=== PATIENT | female | born 1960 | race Caucasian/White ===

== ENCOUNTER 2016-11-17 14:25 | Emergency (ER) | payer SELFPAY ==
[~2016-11-17] VITALS: Ht 157.5 cm; Wt 96.3 kg
[2016-11-17 14:40] VITALS: BP 140/89
--- NOTE | 2016-11-17 15:21 | NUR ---
PT TO BED 6
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
--- NOTE | 2016-11-17 15:29 | NUR ---
DR. MENA PRESENT AT BEDSIDE
[2016-11-17] MEDS ORDERED: TOPROL XL25 MG PO (15:31)
[2016-11-17] MEDS ORDERED: HUMALOG100 UNITS/ SUBQ (15:31)
--- NOTE | 2016-11-17 15:56 | NUR ---
PT TO CT VIA WHEELCHAIR.
--- NOTE | 2016-11-17 16:18 | NUR ---
PT BACK FROM CT
--- NOTE | 2016-11-17 17:38 | NUR ---
CHECKED BP: 195/97. DR. MENA AWARE.
--- NOTE | 2016-11-17 17:38 | NUR ---
DR. MENA PRESENT AT BEDSIDE TO DISCUSS PLAN OF CARE.
[2016-11-17] MEDS ORDERED: cloNIDine 0.1 MG TAB PO ONE (17:45)
--- NOTE | 2016-11-17 18:05 | NUR ---
Patient discharged with v/s stable. Written and verbal after care instructions given and explained. Patient alert, oriented and verbalized understanding of instructions. Ambulatory with steady gait. All questions addressed prior to discharge. ID band removed. IV DC'ED WITH CANNULA INTACT. Patient advised to follow up with PMD. Rx of TYLENOL AND LASIX given. Patient educated on indication of medication including possible reaction and side effects. Opportunity to ask questions provided and answered.
[2016-11-17 18:18] VITALS: BP 159/90
== END 2016-11-17 18:05 | disposition home or self-care (01) ==
LOC: MED 14:25
DX: N28.9 Disorder of kidney and ureter, unspecified (principal); R10.2 Pelvic and perineal pain; R07.89 Other chest pain; E11.9 Type 2 diabetes mellitus without complications; I10 Essential (primary) hypertension
CPT/HCPCS: 36415; 71010; 74176; 80053; 81001; 81025; 82553; 82948; 83690; 83880; 84484; 85025; 85610; 85730; 87086; 93005; 99285; Q0092

== ENCOUNTER 2019-03-11 19:43 | Inpatient (IN) | payer MEDICAID ==
[~2019-03-11] VITALS: Ht 157.5 cm; Wt 74.8 kg
[~2019-03-11 19:43] MED LIST: HUM SUBQ; METO25TE2 PO
[2019-03-11 19:49] VITALS: BP 143/76
--- NOTE | 2019-03-11 19:50 | NUR ---
TO BED # 03 AMBULATORY
--- NOTE | 2019-03-11 20:00 | NUR ---
PT BIB SELF WITH C/O SHAKINESS, N/V, H/A 4 HOURS AGO. STATES TO HAVE PAIN AT LFT LOWER QUADRANT, 7/10 AT THIS TIME. STATES TO HAVE CHILLS. ER TO SEE THE PT. PT HAS HX OF RENAL DISEASE. WILL CONTINUE TO MONITOR PT.
[2019-03-11] MEDS ORDERED: ONDANSETRON 4 MG/2 ML VIAL IVP ONE (20:10)
[2019-03-11 20:28] LABS: HEMOGLOBIN 8.1 g/dL (12.0-16.0)
[2019-03-11 20:34] LABS: HEMATOCRIT 24.6 % (36-48); MEAN CORPUSCULAR HEMOGLOBIN 30 pg (27-31); MEAN CORPUSCULAR HGB CONC 33 g/dL (33-37); MEAN CORPUSCULAR VOLUME 90.8 fL (80-94); PLATELET COUNT (AUTO) 310 K/uL (140-450); RED BLOOD CELL COUNT(AUTO) 2.71 MIL/uL (4.20-5.40); RED CELL DISTRIBUTION WIDTH 14.6 % (11.6-13.7); WHITE BLOOD COUNT (AUTO) 19.6 K/uL (4.8-10.8)
[2019-03-11 20:44] LABS: CHOL/HDL RATIO 2.3 (1-4.5)
[2019-03-11 20:46] LABS: ALBUMIN 3.4 g/dL (3.4-5.0); CARBON DIOXIDE 21.9 mmol/L (21-32); CREATININE 3.7 mg/dL (0.6-1.3); POTASSIUM 4.9 mmol/L (3.5-5.1); TOTAL BILIRUBIN 0.6 mg/dL (0.0-1.0)
[2019-03-11] MEDS ORDERED: FAMOTIDINE 20 MG/2 ML VIAL IVP ONE (20:50)
[2019-03-11] MEDS ORDERED: MORPHINE SULFATE 4 MG/ML SYR IVP ONE (20:50)
[2019-03-11 20:53] LABS: LYMPHOCYTES % (MANUAL) 2 % (20-46); MONOCYTES % (MANUAL) 6 % (5-12)
--- NOTE | 2019-03-11 21:11 | NUR ---
ASSUMED CARE OF PT AT THIS TIME
[2019-03-11] MEDS ORDERED: ACETAMINOPHEN 325 MG TAB PO PRN (21:20)
[2019-03-11] MEDS ORDERED: HYDROcodone/APAP 7.5/325 MG 1 TAB PO PRN (21:20)
--- NOTE | 2019-03-11 21:24 | NUR ---
ENDORSDED PT TO PM NURSE, PT STABLE AT THIS TIME.
[2019-03-11 21:44] LABS: APPEARANCE,URINE HAZY (CLEAR); BILIRUBIN,URINE NEGATIVE (NEGATIVE); BLOOD, URINE NEGATIVE (NEGATIVE); COLOR,URINE YELLOW (YELLOW); LEUKOCYTE ESTERASE ,URINE NEGATIVE (NEGATIVE); NITRITE, URINE NEGATIVE (NEGATIVE); UGLUCOSE TRACE (NEGATIVE)
[2019-03-11 21:49] LABS: PROTHROMBIN TIME 10.9 secs (10.8-13.4)
[2019-03-11 21:55] LABS: RBC,URINE 0-5 /HPF (0-5)
[2019-03-11 21:56] LABS: FINE GRANULAR CASTS,URINE 0-10 /LPF (None Seen); HYALINE CASTS, URINE 0-10 /LPF (None Seen); WBC,URINE 0-5 /HPF (0-5)
--- NOTE | 2019-03-11 21:56 | NUR ---
Patient will be admitted to care of DR. ACHARYA. Admited to TELE Will go to room 119A. Belongings list completed. Report to ANITA KIRBY.
[2019-03-11 21:58] LABS: PHOSPHORUS 5.2 mg/dL (2.5-4.9); THYROID STIMULATING HORMONE 3.94 uIU/mL (0.34-3.74)
[2019-03-11 22:00] VITALS: BP 117/75
--- NOTE | 2019-03-11 22:00 | NUR ---
ADMITTED THIS 59 YEAR OLD FEMALE FROM ER PER MARIA VICTORIA WITH CC OF N/V, ABDOMINAL PAIN AND SHAKINESS FOR 4 HOURS, AMBULATED TO BED WITH ASSIST, ASSESSMENT DONE, VITAL SIGNS STABLE, COMPLAINING OF ABDOMINAL PAIN, NO N/V NOTED AT THIS TIME, WILL MEDICATE PRN, ORIENTED TO ROOM AND CALL LIGHT, PLAN OF CARE DISCUSSED WITH PT AND DAUGHTER ODELL AT BEDSIDE, SAFETY MEASURES IN PLACE, CALL LIGHT WITHIN REACH.
[2019-03-11 22:13] LABS: BARBITURATE, URINE NEG. ng/ml (NEG <=200); BENZODIAZEPINE, URINE NEG. ng/mL (NEG <=200); CANNABINOID, URINE NEG. ng/mL (NEG <=50); COCAINE, URINE NEG. ng/mL (NEG <=300); OPIATE, URINE NEG. ng/mL (NEG <=2000); PHENCYCLIDINE SCREEN,URINE NEG. ng/mL (NEG <=25)
[2019-03-11] MEDS ORDERED: DEXT 5% / NACL 0.9% 500 ML IV SCH (22:15)
[2019-03-11] MEDS ORDERED: FURO-570 PO (22:29)
[2019-03-11] MEDS ORDERED: HYDR100T49 PO (22:29)
[2019-03-11] MEDS ORDERED: ADA90 PO (22:29)
[2019-03-11] MEDS ORDERED: METO5TAB9 PO (22:30)
--- NOTE | 2019-03-11 22:30 | NUR ---
PT AMBULATED TO BR WITH ASSIST, VOIDED FREELY, URINE SENT TO LAB FOR TEST, ASSISTED BACK TO BED, STARTED ON IVF OF D5NS AT 20ML ORDERED, ALL NEEDS ATTENDED.
[2019-03-11] MEDS ORDERED: PROC5TAB PO (22:32)
[2019-03-11] MEDS ORDERED: HYDROmorphone 1 MG/ML AMP IVP PRN (23:05)
[2019-03-12] VITALS: BP 150/69
[2019-03-12] MEDS: hydrALAZINE 25 MG TAB PO SCH ×3 (00:04→20:02)
[2019-03-12] MEDS: PIPER/TAZO 2.25GM/D5W PREMIX 50 ML IV SCH ×4 (00:04→17:59)
[2019-03-12] MEDS: FUROSEMIDE 40 MG/4 ML VIAL IVP SCH ×2 (00:05→09:02)
--- NOTE | 2019-03-12 00:05 | NUR ---
PT BACK FROM CT DEPT, VITAL SIGNS TAKEN, BP SLIGHTLY ELEVATED, DENIES CHEST PAIN, HYDRALAZINE AND LASIX GIVEN ORDERED, FIRST DOSE OF ZOSYN ADMINISTERED, WILL MONITOR FOR REACTION, CONTINUE TO MONITOR CLOSELY.
[2019-03-12] MEDS ORDERED: PIPERACILLIN/TAZOBACTAM 2.25 GM VIAL IV ONE ×2 (00:08→05:28)
--- NOTE | 2019-03-12 01:48 | NUR ---
PT VOIDED FREELY PER BEDPAN WITH 250ML CLEAR YELLOW URINE, PT IN NO DISTRESS AT THIS TIME, MONITORED CLOSELY.
[2019-03-12] MEDS ORDERED: INSULIN LISPRO SLIDING SCALE 100 UNITS/ML VIAL SUBQ PRN (03:10)
[2019-03-12] MEDS ORDERED: DEXTROSE 50% 50 ML SYR IVP PRN (03:10)
--- NOTE | 2019-03-12 03:25 | NUR ---
PT REQUESTING FOR SOMETHING TO EAT, DR BLUNT ORDERED [facility] DIET, MILK PROVIDED, TOLERATED WELL, NO N/V, COMPLAINING OF ABDOMINAL PAIN, VITAL SIGNS TAKEN, BP SLIGHTLY ELEVATED, NO SOB NOTED, MEDICATED PRN FOR PAIN WITH DILAUDID IVP, MONITORED CLOSELY.
[2019-03-12 04:00] VITALS: BP 157/84
--- NOTE | 2019-03-12 06:05 | NUR ---
PT SLEEPING, EASILY AROUSABLE, BLOOD SUGAR CHECKED WITH 128 RESULT, NO COVERAGE NEEDED, ZOSYN IVPB INFUSING WELL, ABLE TO EXPECTORATE YELLOW PHLEGM, SPUTUM SENT TO LAB FOR TEST, DAUGHTER ODELL AT BEDSIDE, MONITORED CLOSELY.
[2019-03-12] MEDS ORDERED: MORPHINE SULFATE 2 MG/ML SYR IVP PRN (06:15)
[2019-03-12] MEDS: BLOOD GLUCOSE MONITORING 1 DEV DEV FS SCH ×4 (06:38→21:00)
[2019-03-12 06:48] LABS: ANION GAP 16.5 (8-16); CARBON DIOXIDE 22.6 mmol/L (21-32); CREATININE 3.5 mg/dL (0.6-1.3); POTASSIUM 5.1 mmol/L (3.5-5.1)
[2019-03-12 06:49] LABS: HEMATOCRIT 22.7 % (36-48); HEMOGLOBIN 7.2 g/dL (12.0-16.0); MEAN CORPUSCULAR HEMOGLOBIN 30 pg (27-31); MEAN CORPUSCULAR HGB CONC 32 g/dL (33-37); MEAN CORPUSCULAR VOLUME 93.3 fL (80-94); PLATELET COUNT (AUTO) 262 K/uL (140-450); RED BLOOD CELL COUNT(AUTO) 2.43 MIL/uL (4.20-5.40); WHITE BLOOD COUNT (AUTO) 23.5 K/uL (4.8-10.8)
--- NOTE | 2019-03-12 07:15 | NUR ---
PT SLEEPING, EASILY AROUSABLE, NO SIGNS OF DISTRESS, REPORT GIVEN TO MIRTA HEARD FOR CONTINUITY OF CARE.
--- NOTE | 2019-03-12 07:16 | NUR ---
RECEIVED REPORT FROM PAUNCH TRIMMER NURSE ANITA FOR CONTINUITY OF CARE. PT IN STABLE CONDITION. RESPIRATIONS EVEN AND UNLABORED. IV INTACT AND PATENT. BED IN LOW POSITION. BED ALARM ON. CALL LIGHT AT BEDSIDE. WILL CONTINUE TO MONITOR.
[2019-03-12 07:18] LABS: LYMPHOCYTES % (MANUAL) 2 % (20-46); MONOCYTES % (MANUAL) 2 % (5-12)
[2019-03-12] MEDS ORDERED: VANCOMYCIN PER PHARMACY MC PRN (07:30)
[2019-03-12] MEDS: ONDANSETRON 4 MG/2 ML VIAL IM/IVP PRN ×3 (07:35→22:06)
[2019-03-12 08:00] VITALS: BP 169/83
[2019-03-12] MEDS ORDERED: VANCOMYCIN 1,000 MG in NACL 0.9% 250 ML IV SCH (09:00)
[2019-03-12] MEDS ORDERED: VANCOMYCIN 1GM/DEXT 5% PREMIX 200 ML IV SCH (09:00)
[2019-03-12] MEDS: HYDROcodone/APAP 7.5/325 MG 1 TAB PO PRN ×2 (09:03→18:35)
[2019-03-12] MEDS: SODIUM FERRIC GLUCONATE 125 MG in NACL 0.9% 100 ML IV SCH (09:03)
[2019-03-12] MEDS: NIFEdipine 90 MG TABER PO SCH (09:03)
[2019-03-12] MEDS: METOLAZONE 5 MG TAB PO SCH (09:06)
[2019-03-12] MEDS ORDERED: ALBUTEROL SULFATE/IPRATROPIU 3 ML SOL IH PRN (09:10)
--- NOTE | 2019-03-12 09:18 | NUR ---
PATIENT HAS BEEN SCREENED AND CATEGORIZED HIGH NUTRITION RISK. PATIENT WILL BE SEEN WITHIN 1-2 DAYS OF ADMISSION. 03/12/19YOHANA TORREZ MBA, RD
--- NOTE | 2019-03-12 09:23 | NUR ---
GAVE ORDERED DUE MEDICATION AT THIS TIME. PT TOLERATED WELL. WILL CONTINUE TO MONITOR. X-RAY AT BEDSIDE AT THIS TIME.
--- NOTE | 2019-03-12 10:15 | NUR ---
DAUGHTER ODELL LEAVING AT THIS TIME TO WORK LEFT NUMBER IN CASE OF EMERGENCY OR INFORMATION .
[2019-03-12] MEDS ORDERED: ASCORBIC ACID 500 MG TAB PO SCH (11:00)
--- NOTE | 2019-03-12 11:01 | NUR ---
ASSISTED WITH BED MENDIOLA AT THIS TIME. PT TOLERATED WELL. WILL CONTINUE TO MONITOR. BED IN LOW POSITION. CALL LIGHT AT BEDSIDE. BED ALARM ON.
[2019-03-12] MEDS ORDERED: FERROUS SULFATE 325 MG TABEC PO SCH (11:15)
[2019-03-12 12:00] VITALS: BP 143/78
--- NOTE | 2019-03-12 13:03 | NUR ---
ASSISTED WITH BED MENDIOLA AT THIS TIME. PT TOLERATED WELL. WILL CONTINUE TO MONITOR. BED IN LOW POSITION. CALL LIGHT AT BEDSIDE. BED ALARM ON.
[2019-03-12] MEDS: ALBUTEROL SULFATE/IPRATROPIU 3 ML SOL IH SCH ×3 (14:43→19:41)
--- NOTE | 2019-03-12 15:55 | NUR ---
TOOK OCCULT BLOOD SPECIMEN TO LAB FOR PROCESSING.
[2019-03-12 16:00] VITALS: BP 140/68
[2019-03-12 16:13] LABS: HEMATOCRIT 24.5 % (36-48); HEMOGLOBIN 7.9 g/dL (12.0-16.0); MEAN CORPUSCULAR HEMOGLOBIN 30 pg (27-31); MEAN CORPUSCULAR HGB CONC 32 g/dL (33-37); MEAN CORPUSCULAR VOLUME 92.9 fL (80-94); PLATELET COUNT (AUTO) 264 K/uL (140-450); RED BLOOD CELL COUNT(AUTO) 2.64 MIL/uL (4.20-5.40); RED CELL DISTRIBUTION WIDTH 14.9 % (11.6-13.7); WHITE BLOOD COUNT (AUTO) 19.3 K/uL (4.8-10.8)
--- NOTE | 2019-03-12 16:29 | NUR ---
VERBAL ORDER. CANCEL ULTRA SOUND ABDOMEN LIMITED. DUPLICATE ORDER IN AT THIS TIME.
[2019-03-12 16:30] LABS: LYMPHOCYTES % (MANUAL) 2 % (20-46); MONOCYTES % (MANUAL) 4 % (5-12)
[2019-03-12] MEDS: DOCUSATE SODIUM 100 MG GELCAP PO PRN (16:52)
[2019-03-12] MEDS: FERROUS SULFATE 325 MG TABEC PO SCH (16:52)
[2019-03-12] MEDS: BUMETANIDE 1 MG/4 ML VIAL IV SCH (16:54)
[2019-03-12] MEDS ORDERED: CALCIUM ACETATE 667 MG TAB PO SCH (17:00)
--- NOTE | 2019-03-12 18:00 | NUR ---
PT IN STABLE CONDITION. FAMILY AT BEDSIDE. RESPIRATIONS EVEN AND UNLABORED. BED IN LOW POSITION. CALL LIGHT AT BEDSIDE.
[2019-03-12 19:10] LABS: CREATININE,URINE RANDOM 63 mg/dL (30-125); URINE SODIUM, RANDOM 6 mmol/l (40-220)
--- NOTE | 2019-03-12 19:18 | NUR ---
GAVE REPORT TO DROP MAN NURSE VIOLA FOR CONTINUITY OF CARE. PT IN STABLE CONDITION.
--- NOTE | 2019-03-12 19:19 | NUR ---
RECEIVED REPORT FROM ORQUIDEA RN DAYSHIFT NURSE AT BEDSIDE FOR CONTINUITY OF CARE, PT IN STABLE CONDITION.
--- NOTE | 2019-03-12 19:53 | NUR ---
RECEIVED PATIENT ON ROOM AIR PULES OX SAT 90%. FAMILY AT BEDSIDE. SCHEDULED BREATHING TREATMENT ADMINISTERED. TOLERATED TX WELL, NO ADVERSE SIDE EFFECTS. PLACED PATIENT ON 2L NC TO MAINTAIN PULSE OX SAT >92% PER PHYSICIAN ORDER. PULSE OX SAT 97% ON 2L NC. NO RESPIRATORY DISTRESS NOTED AT THIS TIME. WILL CONTINUE TO MONITOR.
[2019-03-12 20:00] VITALS: BP 131/63
--- NOTE | 2019-03-12 20:00 | NUR ---
PT IN BED HOB UP 45% PT AOX4 MONGOLIAN SPEAKING MOSTLY. PT HAS 20G IV SITE INTACT AND RUNNING TO KVO ORDERED. PT V/S FOLLOWS T 97.8 P 63 R 18 B/P 131/63 02 96% ON 2 LITERS VIA N/C. PT GIVEN ORDERED APRESOLINE ORDERED FOR HTN. PT FINGERSTICK IS 118, NO HUMALOG COVERAGE NEEDED. FAMILY AT BEDSIDE. ALL FALLS PRECAUTIONS IN PLACE.
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
[2019-03-13] VITALS: BP 146/74
--- NOTE | 2019-03-13 00:05 | NUR ---
PT IN BED ASLEEP. V/S FOLLOWS T 97.1 P 68 R 18 B/P 142/67 02 98% WITH 2 LITERS VIA N/C. V/S FOLLOWS T 97.1 P 68 R 18 B/P 142/67 02 98% ON 2 LITERS VIA N/C. PT GIVEN DUE BUMEX IVP ORDERED. WELL ZOSYN IV ABT RUNNING AT 100MLS/HR. PT IN BED SLEEPING WITH EYES CLOSED, NO S/S OF PAIN OR DISTRESS NOTED. ALL FALLS PRECAUTIONS IN PLACE.
[2019-03-13] MEDS: BUMETANIDE 1 MG/4 ML VIAL IV SCH ×2 (00:37→06:36)
[2019-03-13] MEDS: PIPER/TAZO 2.25GM/D5W PREMIX 50 ML IV SCH ×5 (00:49→23:43)
[2019-03-13 04:00] VITALS: BP 141/67
--- NOTE | 2019-03-13 04:15 | NUR ---
PT SITTING UP IN BED EATING A SMALL SNACK. V/S FOLLOWS T 96.8 P 65 R 18 B/P 141/67 02 94% ON 2 LITERS VIA N/C.
[2019-03-13] MEDS: BLOOD GLUCOSE MONITORING 1 DEV DEV FS SCH ×4 (06:41→19:49)
--- NOTE | 2019-03-13 06:51 | NUR ---
PT F/S IS140 NO NEED FOR COVERAGE. ZOSYN HUNG ORDERED. NO S/S OF PAIN OR DISTRESS NOTED.
--- NOTE | 2019-03-13 07:20 | NUR ---
REPORT GIVEN TO BENNETT KIRBY DAYSHIFT NURSE AT BEDSIDE FOR CONTINUITY OF CARE, PT IN STABLE CONDITION.
[2019-03-13 07:32] LABS: ANION GAP 17.6 (8-16); CARBON DIOXIDE 23.4 mmol/L (21-32); CREATININE 3.8 mg/dL (0.6-1.3)
[2019-03-13 07:33] LABS: BASOPHILS # (AUTO) 0.1 K/uL (0.00-0.22); BASOPHILS % (AUTO) 0.5 % (0.0-2.0); EOSINOPHILS # (AUTO) 0.1 K/uL (0-0.4); EOSINOPHILS % (AUTO) 0.6 % (0.0-4.0); HEMOGLOBIN 8.1 g/dL (12.0-16.0); LYMPHOCYTES % (AUTO) 6.3 % (20.5-51.1); MEAN CORPUSCULAR HEMOGLOBIN 30 pg (27-31); MEAN CORPUSCULAR HGB CONC 32 g/dL (33-37); MEAN CORPUSCULAR VOLUME 93.5 fL (80-94); MONOCYTES # (AUTO) 0.6 K/uL (0.8-1.0); MONOCYTES % (AUTO) 3.5 % (1.7-9.3); NEUTROPHILS # (AUTO) 14.6 K/uL (1.8-7.7); NEUTROPHILS % (AUTO) 89.1 % (42.2-75.2); PLATELET COUNT (AUTO) 311 K/uL (140-450); RED BLOOD CELL COUNT(AUTO) 2.67 MIL/uL (4.20-5.40); RED CELL DISTRIBUTION WIDTH 15.3 % (11.6-13.7); WHITE BLOOD COUNT (AUTO) 16.4 K/uL (4.8-10.8)
[2019-03-13] MEDS: ALBUTEROL SULFATE/IPRATROPIU 3 ML SOL IH SCH ×3 (07:36→19:51)
--- NOTE | 2019-03-13 07:37 | NUR ---
RECEIVED HAND OFF REPORT FROM PAD MACHINE OFFBEARER NURSE. PT IS AWAKE IN BED PT APPEARS STABLE AND IN NO APPARENT DISTRESS. ALL SAFETY MEASURES ARE IN PLACE. WILL CONTINUE TO MONITOR.
[2019-03-13 07:52] LABS: MAGNESIUM 2.1 mg/dL (1.8-2.4); PHOSPHORUS 6.2 mg/dL (2.5-4.9)
[2019-03-13 08:00] VITALS: BP 136/66
[2019-03-13] MEDS ORDERED: CALCIUM ACETATE 667 MG TAB PO SCH (08:25)
[2019-03-13] MEDS: LACTOBACILLUS RHAMNOSUS GG 1 EACH CAP PO SCH (09:02)
[2019-03-13] MEDS: hydrALAZINE 25 MG TAB PO SCH ×2 (09:02→19:50)
[2019-03-13] MEDS: ASCORBIC ACID 500 MG TAB PO SCH (09:02)
[2019-03-13] MEDS: NIFEdipine 90 MG TABER PO SCH (09:03)
[2019-03-13] MEDS: METOLAZONE 5 MG TAB PO SCH (09:03)
[2019-03-13] MEDS: FERROUS SULFATE 325 MG TABEC PO SCH ×2 (09:03→17:23)
[2019-03-13] MEDS: SODIUM FERRIC GLUCONATE 125 MG in NACL 0.9% 100 ML IV SCH (09:04)
--- NOTE | 2019-03-13 09:20 | NUR ---
FREQUENT ROUNDING ON PT PT APPEARS STABLE AND IN NO APPARENT DISTRESS. COMPLAINTS OF IV BEEPING. PLACED EXTENSION PIECE ON IV AND FIXED THE PROBLEM
--- NOTE | 2019-03-13 11:30 | NUR ---
FREQUENT ROUNDING ON PT PT APPEARS STABLE AND IN NO APPARENT DISTRESS. ALL SAFETY MEASURES ARE IN PLACE, PT FAMILY IS AT BEDSIDE. WILL CONTINUE TO MONITOR.
[2019-03-13 12:00] VITALS: BP 129/66
[2019-03-13] MEDS: CALCIUM ACETATE 667 MG TAB PO SCH ×2 (12:30→17:23)
--- NOTE | 2019-03-13 13:15 | NUR ---
FREQUENT ROUNDING ON PT PT APPEARS STABLE AND IN NO APPARENT DISTRESS. ALL SAFETY MEASURES ARE IN PLACE WILL CONTINUE TO MONITOR.
--- NOTE | 2019-03-13 15:35 | NUR ---
FREQUENT ROUNDING ON PT PT APPEARS STABLE AND IN NO APPARENT DISTESS ALL SAFETY MEASURES ARE IN PLACE WILL CONTINUE TO MONITOR.
[2019-03-13 16:00] VITALS: BP 122/51
--- NOTE | 2019-03-13 16:24 | NUR ---
03/13/19 RD INITIAL ASSESSMENT COMPLETED PLEASE REFER TO NUTRITION ASSESSMENT UNDER CARE ACTIVITY FOR ESTIMATED NUTRITIONAL NEEDS. 1.CONTINUE WITH CURRENT DIET ORDER TOLERATED 2. RD PROVIDED DIET RECOMMENDATIONS TO PATIENT REGARDING CKD STAGES 1-[address] TO FOLLOW-UP 3-5 DAYS, MODERATE RISK MARLENE MAI, LIONEL
--- NOTE | 2019-03-13 16:45 | NUR ---
FINGERSTICK GLUCOSE 133. NO COVERAGE NEEDED.
--- NOTE | 2019-03-13 17:30 | NUR ---
FREQUENT ROUNDING ON PT PT APPEARS STABLE AND IN NO APPARENT DISTRESS. ALL SAFETY MEASURES ARE PLACE.
--- NOTE | 2019-03-13 18:55 | NUR ---
FREQUENT ROUNDING ON PT PT APPEARS STABLE AND IN NO APPARENT DISTRESS. IV SITE IS PATENT AND SHOWS NO SIGNS OF INFILTRATION OR INFLAMMATION ALL SAFETY MEASURES ARE IN PLACE, WILL CONTINUE TO MONITOR.
--- NOTE | 2019-03-13 19:25 | NUR ---
REPORT RECEIVED FROM BENNETT KIRBY DAYSHIFT NURSE AT BEDSIDE FOR CONTINUITY OF CARE, PT IN STABLE CONDITION.
--- NOTE | 2019-03-13 19:25 | NUR ---
ENDORSED PT TO PM RN, PT APPEARS STABLE AND IN NO APPARENT DISTRESS. ALL SAFETY MEASURES ARE IN PLACE.
[2019-03-13] MEDS: DOCUSATE SODIUM 100 MG GELCAP PO PRN (19:51)
[2019-03-13 20:00] VITALS: BP 139/62
--- NOTE | 2019-03-13 20:00 | NUR ---
PT IN BED ALL FALLS AND ASPIRATION PRECAUTIONS IN PLACE. PT C/O THAT HE IV SITE WAS LEAKING. ATTEMPTED TO FLUSH BUT PT C/O OF PAIN. PT GIVEN NEW IV SITE OF 24G ON RIGHT WRIST. NEW SITE INTACT AND FLUSHED PATENT. V/S FOLLOWS T 98.5 P 68 R 18 B/P 139/62 02 93% ON ROOM AIR. PT C/O CONSTIPATION AND REQUESTED SOMETHING TO HELP HER POOP. PT DECLINED PRUNE JUICE SAYING IT DOESN'T WORK FOR HER.
--- NOTE | 2019-03-13 20:10 | NUR ---
FINGERSTICK IS 118 NO HUMALOG COVERAGE NEEDED. PT HAS NO C/O OF PAIN OR DISTRESS.
--- NOTE | 2019-03-13 21:00 | NUR ---
PT GIVEN ORDERED APRESOLINE FOR HTN AND ALSO GIVEN PO/PRN COLACE FOR CONSTIPATION. PT REQUESTED TO HAVE LACTULOSE WHICH SHE SAID WORKS FOR HER. WILL SPEAK TO RESIDENT MD CONCERNING HER REQUEST.
--- NOTE | 2019-03-13 22:00 | NUR ---
SPOKE WITH RESIDENT MD ALBERT REGARDING PT REQUEST. SAID SHE WOULD ORDER THE LACTULOSE PRN FOR CONSTIPATION.
[2019-03-13] MEDS ORDERED: LACTULOSE 20 GM/30 ML UDC PO PRN (22:05)
--- NOTE | 2019-03-13 23:35 | NUR ---
PT IN BED ALL FALLS AND ASPIRATION PRECAUTIONS IN PLACE. V/S FOLLOWS T 98.5 P 65 R 18 B/P 142/64 02 95% WITH ROOM AIR. PT GIVEN ORDERED ZOFRAN AND THE LACTULOSE . WILL MONITOR FOR EFFECT. PT ALSO NOTE HAVING REGURGITATION. SPOKE WITH MD RESIDENT ALBERT AND ASKED IF THEY WOULD INCLUDE A PROTONIX. MD VERBALIZED AGREEMENT AND WILL ORDER A MEDICATION FOR GERD FOR THE AM.
[2019-03-13] MEDS: LACTULOSE 20 GM/30 ML UDC PO SCH (23:40)
[2019-03-14] VITALS: BP 142/64
[2019-03-14] MEDS: ONDANSETRON 4 MG/2 ML VIAL IM/IVP PRN (00:41)
--- NOTE | 2019-03-14 00:43 | NUR ---
CARE ENDORSE TO SAMI RN AT BEDSIDE , DUE TO CHANGE OF ASSIGNMENT. ENDORSED THAT PT C/O OF NAUSEA AND REGURGITATION.
--- NOTE | 2019-03-14 00:44 | NUR ---
RECEIVED REPORT FROM OTHER FRONT LINE LEADER NURSE. AAOX4. PT C/O VOMITING X1. ZOFRAN 4 MG GIVEN. PT DENIES PAIN OR SOB. IV TO RIGHT WRIST #24G, PATENT AND INTACT. SAFETY AND ASPIRATION PRECAUTION IN PLACE. Addendum: 03/14/19 at 0142 by Cedric Chacon RN DR. ALBERT MADE AWARE ZOFRAN LAST DOSE GIVEN [id number].
[2019-03-14] MEDS ORDERED: PANTOPRAZOLE 40 MG TABEC PO ONE (01:00)
--- NOTE | 2019-03-14 02:30 | NUR ---
PT SLEEPING. NO S/S OF PAIN OR DISCOMFORT. NO S/S OF RESP DISTRESS. SAFETY PRECAUTION IN PLACE. CALL LIGHT WITHIN REACH.
[2019-03-14 04:00] VITALS: BP 136/63
--- NOTE | 2019-03-14 04:20 | NUR ---
PT HAD MINIMAL NOSE BLEED ON LEFT NOSTRIL. PRESSURE APPLIED AND BLEEDING STOPPED. PER PT, HE BLEW HIS NOSE TOO HARD. DENIES PAIN OR SOB. Addendum: 03/14/19 at 0439 by Cedric Chacon RN DR. ALBERT MADE AWARE. PER , WILL DO CBC THIS MORNING.
[2019-03-14] MEDS: PIPER/TAZO 2.25GM/D5W PREMIX 50 ML IV SCH ×3 (05:27→17:03)
[2019-03-14] MEDS: BLOOD GLUCOSE MONITORING 1 DEV DEV FS SCH ×4 (05:39→20:04)
--- NOTE | 2019-03-14 06:00 | NUR ---
CHECKED BLOOD SUGAR 104. NO INSULIN COVERAGE. NO C/O NAUSEA/VOMITING AT THIS TIME. NO RESP DISTRESS NOTED.
--- NOTE | 2019-03-14 07:18 | NUR ---
PT REFUSED 7 AM DUO NEB TXT. SHE IS ON 2 LITER NASAL CANULA SATURATING 97% WITH CLEAR SOUNDS.
--- NOTE | 2019-03-14 07:20 | NUR ---
ENDORSED PT TO DAY SHIFT NURSE. PT IN STABLE CONDITION.
--- NOTE | 2019-03-14 07:21 | NUR ---
RECEIVED BEDSIDE REPORT FROM NIGHT NURSE. PT RESTING IN BED WITH BREATHING UNLABORED CURRENTLY ON 2L NC OXYGEN. RT ALSO AT BEDSIDE STATING PT REFUSED BREATHING TRX WITH LUNGS CLEAR AND BREATHING UNLABORED. PT HAS A RIGHT WRIST IV THAT IS ASYMPTOMATIC AND PATENT INFUSING D5NS AT 10ML/HR TKO. PT IS AOX4 WITH ALL SAFETY MEASURES IN PLACE AND CALL LIGHT WITHIN REACH.
[2019-03-14 07:32] LABS: BASOPHILS # (AUTO) 0.1 K/uL (0.00-0.22); BASOPHILS % (AUTO) 0.7 % (0.0-2.0); EOSINOPHILS # (AUTO) 0.2 K/uL (0-0.4); EOSINOPHILS % (AUTO) 2.3 % (0.0-4.0); HEMATOCRIT 21.1 % (36-48); LYMPHOCYTES # (AUTO) 0.6 K/uL (2.5-16.5); MEAN CORPUSCULAR HEMOGLOBIN 31 pg (27-31); MEAN CORPUSCULAR HGB CONC 33 g/dL (33-37); MEAN CORPUSCULAR VOLUME 92.3 fL (80-94); MONOCYTES # (AUTO) 0.5 K/uL (0.8-1.0); MONOCYTES % (AUTO) 5.7 % (1.7-9.3); NEUTROPHILS # (AUTO) 7.1 K/uL (1.8-7.7); PLATELET COUNT (AUTO) 241 K/uL (140-450); RED BLOOD CELL COUNT(AUTO) 2.28 MIL/uL (4.20-5.40); WHITE BLOOD COUNT (AUTO) 8.4 K/uL (4.8-10.8)
[2019-03-14 07:34] LABS: ANION GAP 16.6 (8-16); CARBON DIOXIDE 23.8 mmol/L (21-32); POTASSIUM 4.4 mmol/L (3.5-5.1)
[2019-03-14 07:39] LABS: CREATININE 4.3 mg/dL (0.6-1.3)
[2019-03-14 07:47] LABS: MAGNESIUM 2.2 mg/dL (1.8-2.4); PHOSPHORUS 6.5 mg/dL (2.5-4.9)
--- NOTE | 2019-03-14 07:47 | NUR ---
RECEIVED CALL FROM LAB FOR HEMOGLOBIN 7.0 AND HEMATOCRIT 21.1 AND AT 0740 FOR BUN 93 AND CREATININE 4.3. NOTIFIED DR GUAMAN OF ALL VALUES.
[2019-03-14 08:00] VITALS: BP 140/61
[2019-03-14 08:13] LABS: LYMPHOCYTES % (AUTO) 6.9 % (20.5-51.1); NEUTROPHILS % (AUTO) 84.4 % (42.2-75.2)
[2019-03-14] MEDS: LACTULOSE 20 GM/30 ML UDC PO SCH (08:26)
[2019-03-14] MEDS: FERROUS SULFATE 325 MG TABEC PO SCH ×2 (08:27→20:05)
[2019-03-14] MEDS: METOLAZONE 5 MG TAB PO SCH (08:27)
[2019-03-14] MEDS: hydrALAZINE 25 MG TAB PO SCH ×2 (08:27→20:04)
[2019-03-14] MEDS: PANTOPRAZOLE 40 MG TABEC PO SCH (08:27)
[2019-03-14] MEDS: ASCORBIC ACID 500 MG TAB PO SCH (08:28)
[2019-03-14] MEDS: LACTOBACILLUS RHAMNOSUS GG 1 EACH CAP PO SCH (08:28)
[2019-03-14] MEDS: NIFEdipine 90 MG TABER PO SCH (08:28)
[2019-03-14] MEDS: CALCIUM ACETATE 667 MG TAB PO SCH ×3 (08:28→16:00)
[2019-03-14] MEDS ORDERED: BISACODYL 10 MG SUPP RC SCH (08:30)
--- NOTE | 2019-03-14 08:34 | NUR ---
ADMINISTERED MEDICATIONS PT HAS NO DISTRESS AT THIS TIME.
[2019-03-14] MEDS ORDERED: SODIUM PHOSPHATE 118 ML ENEM RC SCH (10:00)
--- NOTE | 2019-03-14 10:17 | NUR ---
ADMINISTERED SUPPOSITORY DULCOLAX, PT REPORTS FAILING TO HAVE BOWEL MOVEMENT YET TODAY AND CONSISTENT BLOATING DUE TO THIS. NO OTHER REQUESTS OR OBVIOUS SIGNS OF DISTRESS AT THIS TIME.
[2019-03-14] MEDS ORDERED: CALCIUM CARB/VIT-D 500 MG/200 IU 1 TAB PO SCH (10:45)
--- NOTE | 2019-03-14 11:12 | NUR ---
ADMINISTERED ENEMA FOR PATIENT. ALSO ADMINISTERED SCHEDULED MEDICATION, PT HAS NO OTHER REQUESTS AT THIS TIME AND NO SIGNS OF DISTRESS.
[2019-03-14 11:53] LABS: TRANSFERRIN 182 mg/dL (200-370)
--- NOTE | 2019-03-14 11:54 | NUR ---
ADMINISTERED MEDICATIONS, NO SIGNS OF DISTRESS. PT HAD A BOWEL MOVEMENT.
[2019-03-14 12:00] VITALS: BP 134/49
--- NOTE | 2019-03-14 13:30 | NUR ---
PT RESTING IN BED NO REQUESTS AT THIS TIME NO OBVIOUS DISTRESS.
[2019-03-14] MEDS: ALBUTEROL SULFATE/IPRATROPIU 3 ML SOL IH SCH ×2 (13:36→19:00)
[2019-03-14] MEDS: DOCUSATE SODIUM 100 MG GELCAP PO PRN (14:20)
--- NOTE | 2019-03-14 14:22 | NUR ---
ADMINISTERED COLACE PRN PER PT REQUEST WHO IS REPORTING FEELING CONSTIPATED DESPITE GOING ONCE TODAY, BUT IS UNABLE TO GO AGAIN BUT FEELS THE URGE. ALSO CALLED [facility] FOR A TUNA SANDWICH, SUGAR FREE SHERBERT ICECREAM, AND TO REQUEST THEY CUT HER APPLES. THEY STATED THEY WOULD. PT HAS NO OTHER REQUESTS AND IS RESTING IN BED NO OBVIOUS DISTRESS AND BREATHING UNLABORED WITH PT FEMALE VISITOR AT BEDSIDE.
--- NOTE | 2019-03-14 14:28 | NUR ---
RIGHT AC IV REMOVED WITH CATHETER INTACT DUE TO INABILITY TO FLUSH OR ASPIRATE. IV STARTED ON THE RIGHT AC AND LEFT AC WELL BOTH 22 GAUGE SALINE FLUSHED. Addendum: 03/14/19 at 1708 by Robbie Jin RN CLARIFICATION THIS WAS DOCUMENTED ON THE WRONG PATIENT PLEASE REMOVE NOTE
--- NOTE | 2019-03-14 15:27 | NUR ---
PT NOT IN ROOM, WAS INFORMED BY CHARGE NURSE SHE IS IN THE SHOWER CURRENTLY. TELE BOX IS AT BEDSIDE WHILE PT IS IN SHOWER.
[2019-03-14 16:00] VITALS: BP 150/67
--- NOTE | 2019-03-14 16:01 | NUR ---
ADMINISTERED MEDICATION. PT JUST RETURNED FROM SHOWER ACCOMPANIED BY DAUGHTER. PT SITTING ON SIDE OF BED BREATHING UNLABORED AND WITHOUT DISTRESS AMBULATED STEADY AND WITHOUT DIFFICULTY BACK TO ROOM.
--- NOTE | 2019-03-14 16:45 | NUR ---
BROUGHT PT CRANBERRY JUICE AND ICE PER HER REQUEST. NO OTHER REQUESTS AND PT RESTING IN BED EATING DINNER.
--- NOTE | 2019-03-14 17:23 | NUR ---
PT SLEEPING IN BED BREATHING UNLABORED.
--- NOTE | 2019-03-14 18:26 | NUR ---
PT RESTING IN BED SPEAKING WITH AT BEDSIDE. DENIES ANY REQUESTS. PT ASKING IF SHE CAN HAVE SOME COFFEE. BROUGHT HER DECAF COFFEE AT THIS TIME. NO OTHER REQUESTS.
--- NOTE | 2019-03-14 19:19 | NUR ---
GAVE BEDSIDE REPORT TO NIGHT NURSE. PT IN STABLE CONDITION AT THIS TIME.
--- NOTE | 2019-03-14 19:20 | NUR ---
RECEIVED FROM AM RN IN BED SITTING UP ABLE TO VERBALIZE WELL WITH ME. SPOUSE AT BEDSIDE VISITING. SPEAKS GOOD PASHTO. TELEMETRY MONITORING. CARE PLANS FOR THE NIGHT DISCUSSED WITH THEM AND CALL LIGHT WITH IN REACH. TELEMETRY MONITORING. DX. OF PROGRESSIVE RENAL FAILURE AND CHF. NO RESTLESSNESS AT THIS TIME. DENIES PAIN. ENCOURAGED TO CALL IF SHE NEEDS HELP AND IF IN PAIN. IVF SITE INTACT AND NO INFILTRATION NOTED.
[2019-03-14 19:26] VITALS: BP 140/64
[2019-03-14] MEDS: DOCUSATE SODIUM 100 MG GELCAP PO SCH (20:05)
--- NOTE | 2019-03-14 22:30 | NUR ---
SLEEPING AT THIS TIME. SPOUSE LEFT FOR HOME. CALL LIGHT WITH IN REACH. ENCOURAGED TO CALL FOR ANY HELP SHE MAY NEED. TELEMETRY MONITORING. IVF SITE INTACT AND NO S/S OF INFILTRATION.
[2019-03-15] VITALS (9 sets, daily range): BP systolic 138–164; BP diastolic 64–73
[2019-03-15] MEDS: PIPER/TAZO 2.25GM/D5W PREMIX 50 ML IV SCH ×5 (00:09→23:09)
--- NOTE | 2019-03-15 01:14 | NUR ---
WOKE UP EASILY WHEN VS TAKEN. ABLE TO CARRY A CONVERSATION WELL WITH ME . A/O X 4. NO COMPLAINTS DONE. IVF SITE INTACT AND NO INFILTRATION NOTED.
--- NOTE | 2019-03-15 03:00 | NUR ---
SLEEPING WELL. NO RESTLESSNESS. TELEMETRY MONITORING. CALL LIGHT WITH IN REACH.
[2019-03-15] MEDS: BLOOD GLUCOSE MONITORING 1 DEV DEV FS SCH ×4 (05:45→20:13)
--- NOTE | 2019-03-15 06:21 | NUR ---
SLEPT WELL THIS SHIFT. NO COMPLAINTS DONE. A/O X 4. WILL ENDORSE TO AM RN FOR CONTINUITY OF CARE. TELEMETRY MONITORING.
[2019-03-15] MEDS: ALBUTEROL SULFATE/IPRATROPIU 3 ML SOL IH SCH ×2 (06:29→13:00)
--- NOTE | 2019-03-15 07:20 | NUR ---
PATIENT WAS SLEEPING COMFORTABLY, EASILY AROUSABLE BY NAME. RESPIRATION EVEN, UNLABOR ON ROOM AIR. SKIN DRY AND WARM. IV PATENT AND INTACT. DENIED PAIN AT THIS TIME. PLAN OF CARE WAS DISCUSSED WITH PATIENT. BED AT LOW POSITION, SIDE RAILS UP. CALL LIGHT WITHIN REACH
[2019-03-15] MEDS: hydrALAZINE 25 MG TAB PO SCH ×2 (08:14→20:12)
[2019-03-15] MEDS: PANTOPRAZOLE 40 MG TABEC PO SCH (08:14)
[2019-03-15] MEDS: CALCIUM CARB/VIT-D 500 MG/200 IU 1 TAB PO SCH (08:14)
[2019-03-15] MEDS: LACTOBACILLUS RHAMNOSUS GG 1 EACH CAP PO SCH (08:15)
[2019-03-15] MEDS: DOCUSATE SODIUM 100 MG GELCAP PO SCH ×2 (08:15→20:12)
[2019-03-15] MEDS: LACTULOSE 20 GM/30 ML UDC PO SCH (08:15)
[2019-03-15] MEDS: METOLAZONE 5 MG TAB PO SCH (08:15)
[2019-03-15] MEDS: NIFEdipine 90 MG TABER PO SCH (08:16)
[2019-03-15] MEDS: CALCIUM ACETATE 667 MG TAB PO SCH ×3 (08:16→17:09)
[2019-03-15] MEDS: ASCORBIC ACID 500 MG TAB PO SCH (08:16)
[2019-03-15 08:20] LABS: BASOPHILS # (AUTO) 0.1 K/uL (0.00-0.22); BASOPHILS % (AUTO) 1.1 % (0.0-2.0); EOSINOPHILS # (AUTO) 0.3 K/uL (0-0.4); EOSINOPHILS % (AUTO) 3.6 % (0.0-4.0); HEMATOCRIT 20.9 % (36-48); LYMPHOCYTES # (AUTO) 0.6 K/uL (2.5-16.5); MEAN CORPUSCULAR HEMOGLOBIN 31 pg (27-31); MEAN CORPUSCULAR HGB CONC 33 g/dL (33-37); MEAN CORPUSCULAR VOLUME 92.4 fL (80-94); MONOCYTES # (AUTO) 0.5 K/uL (0.8-1.0); MONOCYTES % (AUTO) 6.2 % (1.7-9.3); NEUTROPHILS # (AUTO) 6.4 K/uL (1.8-7.7); PLATELET COUNT (AUTO) 225 K/uL (140-450); RED BLOOD CELL COUNT(AUTO) 2.27 MIL/uL (4.20-5.40); RED CELL DISTRIBUTION WIDTH 14.8 % (11.6-13.7); WHITE BLOOD COUNT (AUTO) 7.8 K/uL (4.8-10.8)
[2019-03-15] MEDS ORDERED: MAGNESIUM HYDROXIDE 2400 MG/30 ML UDC PO SCH (08:30)
[2019-03-15] MEDS ORDERED: BISACODYL 10 MG SUPP RC SCH (08:30)
[2019-03-15 09:03] LABS: LYMPHOCYTES % (AUTO) 8.3 % (20.5-51.1); NEUTROPHILS % (AUTO) 80.8 % (42.2-75.2)
[2019-03-15 09:17] LABS: MAGNESIUM 2.2 mg/dL (1.8-2.4); PHOSPHORUS 6.7 mg/dL (2.5-4.9)
[2019-03-15 09:23] LABS: ANION GAP 19.6 (8-16); CARBON DIOXIDE 21.9 mmol/L (21-32); POTASSIUM 4.5 mmol/L (3.5-5.1)
[2019-03-15 09:56] LABS: CREATININE 4.9 mg/dL (0.6-1.3)
[2019-03-15] MEDS ORDERED: SODIUM PHOSPHATE 118 ML ENEM RC SCH (10:00)
--- NOTE | 2019-03-15 10:22 | NUR ---
PATIENT WAS SLEEPING COMFORTABLY. RESPIRATION EVEN, UNLABOR ON ROOM AIR. MEDS WERE GIVEN PER ORDER. PATIENT TOLERATED WELL
--- NOTE | 2019-03-15 11:30 | NUR ---
PATIENT HAD A LARGE BM PER PATIENT AND COTTAGE PARENT. PATIENT REQUESTED TO HOLD ENEMA AT THIS TIME
--- NOTE | 2019-03-15 12:00 | NUR ---
PATIENT DESAT TO 89% ON ROOM AIR AFTER USING COMMODE. PATIENT WAS PLACED BACK TO 2L VIA NC. WILL CONTINUE TO MONITOR
--- NOTE | 2019-03-15 12:19 | NUR ---
PATIENT WAS RESTING COMFORTABLY. RESPIRATION EVEN, UNLABOR ON 2L NC. DENIED SOB AT THIS TIME. NO DISTRESS NOTED. MEDS WERE GIVEN PER ORDER
[2019-03-15 12:23] LABS: FERRITIN 180 ng/mL (15-150)
[2019-03-15] MEDS ORDERED: EPOETIN ALFA 20,000 UNITS/ML VIAL SUBQ SCH (13:20)
[2019-03-15] MEDS: SODIUM FERRIC GLUCONATE 125 MG in NACL 0.9% 100 ML IV SCH (14:28)
[2019-03-15] MEDS: ALUMINUM HYDROXIDE 64 MG/ML BOTTLE PO SCH ×2 (14:28→21:00)
--- NOTE | 2019-03-15 15:05 | NUR ---
BLOOD TRANSFUSION CONSENT WAS OBTAINED AT BEDSIDE, SIGNED BY PATIENT. RISKS AND BENEFITS WERE EXPLAINED PER DR. AVILA. NEW IV 22G WAS STARTED ON LEFT HAND. PATIENT TOLERATED WELL
[2019-03-15] MEDS ORDERED: EPOETIN ALFA 10,000 UNITS/ML VIAL SUBQ SCH (15:25)
--- NOTE | 2019-03-15 16:00 | NUR ---
PATIENT WAS RESTING COMFORTABLY. RESPIRATION EVEN, UNLABOR ON 2L NC. DENIED PAIN, SOB AT THIS TIME. NO DISTRESS NOTED.
--- NOTE | 2019-03-15 18:14 | NUR ---
BLOOD TRANSFUSION WAS STARTED PER ORDER. VS IS STABLE AT THIS TIME
--- NOTE | 2019-03-15 19:12 | NUR ---
ENDORSEMENT GIVEN TO CALL CENTER DISPATCHER NURSE. PATIENT IS STABLE AT THIS TIME.
--- NOTE | 2019-03-15 19:15 | NUR ---
RECEIVED FROM AM RN IN BED SLEEPING. BLOOD TRANSFUSION OF PRBC ON GOING. NO ADVERSE REACTION REPORTED FROM AM RN. CALL LIGHT WITH IN REACH. TELEMETRY MONITORING. A/O X 4. ROM X 4. IVF SITE INTACT AND NO INFILTRATION.
--- NOTE | 2019-03-15 20:00 | NUR ---
PT. AWAKE AND WATCHING TV. HAPPY AND SMILING. NO COMPLAINTS DONE AT THIS TIME. DENIES ANY PAIN. CALL LIGHT WITH IN REACH. IVF SITE INTACT AND NO INFILTRATION.
--- NOTE | 2019-03-15 21:17 | NUR ---
PT. BLOOD TRANSFUSION DONE. NO COMPLAINTS DONE. CALL LIGHT WITH IN REACH AND ABLE TO VERBALIZE NEEDS WELL WITH CARE GIVERS. NO NOTED ADVERSE REACTIONS FROM BLOOD TRANSFUSION.
[2019-03-15] MEDS ORDERED: ALUMINUM HYD/MAG/SIMETHICONE 30 ML UDC ONE (22:01)
--- NOTE | 2019-03-16 | NUR ---
PT. ASSISTED TO BEDSIDE COMMODE AND HAD A BIG BM. STATED THAT SHE FEELS LIKE SHE HAS MORE . KEPT CLEAN AND DRY. NO COMPLAINTS OF PAIN. ABLE TO USE CALL LIGHT FOR HELP. A/O X 4. ROM X 4.
--- NOTE | 2019-03-16 00:36 | NUR ---
SLEEPING AT THIS TIME. CALL LIGHT WITH IN REACH. TELEMETRY MONITORING.
--- NOTE | 2019-03-16 02:45 | NUR ---
SLEEPING. CALL LIGHT WITH IN REACH. TELEMETRY MONITORING.
--- NOTE | 2019-03-16 03:00 | NUR ---
PT. WOKE UP AND ASSISTED TO BEDSIDE COMMODE. HAD BM. INDEPENDENT WITH PERSONAL HYGIENE CARE. USES CALL LIGHT FOR HELP.
[2019-03-16 04:20] VITALS: BP 154/70
[2019-03-16] MEDS: BLOOD GLUCOSE MONITORING 1 DEV DEV FS SCH ×4 (05:16→20:54)
[2019-03-16] MEDS: PIPER/TAZO 2.25GM/D5W PREMIX 50 ML IV SCH (05:16)
[2019-03-16] MEDS ORDERED: ALUMINUM HYD/MAG/SIMETHICONE 30 ML UDC ONE (05:35)
[2019-03-16] MEDS: ALUMINUM HYDROXIDE 64 MG/ML BOTTLE PO SCH ×3 (05:38→20:54)
[2019-03-16 06:10] LABS: ANION GAP 17.5 (8-16); POTASSIUM 4.5 mmol/L (3.5-5.1)
[2019-03-16 06:24] LABS: CREATININE 5.1 mg/dL (0.6-1.3)
[2019-03-16 06:30] LABS: BASOPHILS # (AUTO) 0.1 K/uL (0.00-0.22); BASOPHILS % (AUTO) 0.9 % (0.0-2.0); EOSINOPHILS # (AUTO) 0.3 K/uL (0-0.4); HEMATOCRIT 22.1 % (36-48); HEMOGLOBIN 7.3 g/dL (12.0-16.0); LYMPHOCYTES # (AUTO) 0.7 K/uL (2.5-16.5); LYMPHOCYTES % (AUTO) 10.6 % (20.5-51.1); MEAN CORPUSCULAR HEMOGLOBIN 29 pg (27-31); MEAN CORPUSCULAR HGB CONC 33 g/dL (33-37); MONOCYTES # (AUTO) 0.6 K/uL (0.8-1.0); MONOCYTES % (AUTO) 8.3 % (1.7-9.3); NEUTROPHILS # (AUTO) 5.1 K/uL (1.8-7.7); NEUTROPHILS % (AUTO) 76.2 % (42.2-75.2); PLATELET COUNT (AUTO) 200 K/uL (140-450); RED BLOOD CELL COUNT(AUTO) 2.54 MIL/uL (4.20-5.40); RED CELL DISTRIBUTION WIDTH 22.2 % (11.6-13.7); WHITE BLOOD COUNT (AUTO) 6.7 K/uL (4.8-10.8)
--- NOTE | 2019-03-16 06:34 | NUR ---
SLEEPING. A/O X 4. WAKES UP EASILY . VERBALIZES WELL. WILL ENDORSE TO AM RN FOR CONTINUITY OF CARE. RESIDENT MD HAGER SEEN PT. AT THIS TIME. AWARE OF NEW CRITICAL VALUES FOR BUN AND CREATININE.
--- NOTE | 2019-03-16 07:18 | NUR ---
RECEIVED REPORT FROM CONTROL SYSTEM COMPUTER SCIENTIST NURSE KYLEE FOR CONTINUITY OF CARE. PT IN STABLE CONDITION. RESPIRATIONS EVEN AND UNLABORED. IV INTACT AND PATENT. SAFETY MEASURES IN PLACE. CALL LIGHT AT BEDSIDE. BED IN LOW POSITION. BED ALARM ON. WILL CONTINUE TO MONITOR.
[2019-03-16 08:00] VITALS: BP 178/80
[2019-03-16] MEDS: LACTULOSE 20 GM/30 ML UDC PO SCH (09:00)
--- NOTE | 2019-03-16 09:30 | NUR ---
GAVE ORDERED DUE MEDICATIONS AT THIS TIME. PT IN STABLE CONDITION. RESPIRATIONS EVEN AND UNLABORED. BED IN LOW POSITION. CALL LIGHT AT BEDSIDE. BED ALARM ON. WILL CONTINUE TO MONITOR.
[2019-03-16] MEDS: CALCIUM ACETATE 667 MG TAB PO SCH ×3 (09:39→18:00)
[2019-03-16] MEDS: LABETALOL 200 MG TAB PO SCH ×2 (09:39→20:55)
[2019-03-16] MEDS: LACTOBACILLUS RHAMNOSUS GG 1 EACH CAP PO SCH (09:40)
[2019-03-16] MEDS: FAMOTIDINE 20 MG TAB PO SCH (09:40)
[2019-03-16] MEDS: ASCORBIC ACID 500 MG TAB PO SCH (09:40)
[2019-03-16] MEDS: CALCIUM CARB/VIT-D 500 MG/200 IU 1 TAB PO SCH (09:40)
[2019-03-16] MEDS: hydrALAZINE 25 MG TAB PO SCH ×2 (09:40→20:55)
[2019-03-16] MEDS: FERROUS SULFATE 325 MG TABEC PO SCH ×2 (09:40→20:55)
[2019-03-16] MEDS: NIFEdipine 90 MG TABER PO SCH (09:41)
[2019-03-16] MEDS: DOCUSATE SODIUM 100 MG GELCAP PO SCH ×2 (09:41→20:58)
--- NOTE | 2019-03-16 11:10 | NUR ---
PT IN BED SLEEPING AT THIS TIME. RESPIRATIONS EVEN AND UNLABORED. BED IN LOW POSITION. CALL LIGHT AT BEDSIDE. BED ALARM ON. WILL CONTINUE TO MONITOR.
[2019-03-16 12:00] VITALS: BP 154/82
[2019-03-16] MEDS: SODIUM FERRIC GLUCONATE 125 MG in NACL 0.9% 100 ML IV SCH (13:42)
--- NOTE | 2019-03-16 14:25 | NUR ---
NEW IV PLACED LEFT WRIST 24G. PT TOLERATED WELL.
--- NOTE | 2019-03-16 14:36 | NUR ---
PT LYING IN BED IN STABLE CONDITION. RESPIRATIONS EVEN AND UNLABORED. BED IN LOW POSITION. CALL LIGHT AT BEDSIDE. BED ALARM ON. WILL CONTINUE TO MONITOR.
[2019-03-16 16:00] VITALS: BP 153/74
--- NOTE | 2019-03-16 17:10 | NUR ---
REPOSITIONED AT THIS TIME. RESPIRATIONS EVEN AND UNLABORED. BED IN LOW POSITION. CALL LIGHT AT BEDSIDE. BED ALARM ON. WILL CONTINUE TO MONITOR.
--- NOTE | 2019-03-16 19:20 | NUR ---
GAVE REPORT TO OIL FIRE SPECIALIST NURSE FOR CONTINUITY OF CARE. PT IN STABLE CONDITION.
--- NOTE | 2019-03-16 19:21 | NUR ---
RECEIVED BEDSIDE REPORT FROM DAY SHIFT NURSE ORQUIDEA RN, PT STABLE NO DISTRESS NOTED, IV TO L HAND 22 G, PATENT INTACT, INFUSING WELL, AND R HAND 24G, PATENT INTACT, SL, PT ON ROOM AIR, NO SOB NOTED, INITIAL ASSESSMENT DONE, CALL LIGHT WITHIN REACH, WILL CONTINUE TO MONITOR.
[2019-03-16 20:00] VITALS: BP 134/61
--- NOTE | 2019-03-16 20:55 | NUR ---
DUE MEDICATION ADMINISTERED, PT TOLERATED WELL, IV TO R HAND TAKEN OUT PER PT REQUEST, CATH INTACT, PT RESTING, NO DISTRESS NOTED, CALL LIGHT WITHIN REACH, WILL CONTINUE TO MONITOR. Addendum: 03/17/19 at 0343 by Miya Loving RN PT REFUSED COLACE, STATED SHE HAS BEEN GOING TO RESTROOM AND HAD JUST STOPPED, DOES NOT WANT TO GO AGAIN.
[2019-03-16] MEDS: ONDANSETRON 4 MG/2 ML VIAL IM/IVP PRN (23:21)
--- NOTE | 2019-03-16 23:21 | NUR ---
PT VOMITED, DIRKAN PER MD ORDER ADMINISTERED, PT TOLERATED WELL, NO DISTRESS NOTED, CALL LIGHT WITHIN REACH, WILL CONTINUE TO MONITOR. Addendum: 03/17/19 at 0125 by Miya Loving RN NOTIFIED DR MARYANNE ROSALES UNDERSTANDING.
--- NOTE | 2019-03-16 23:55 | NUR ---
CHECKED ON PT, PT SLEEPING, V/S TAKEN, WNL, CALL LIGHT WITHIN REACH, WILL CONTINUE TO MONITOR.
[2019-03-17] VITALS: BP 138/55
--- NOTE | 2019-03-17 02:10 | NUR ---
CHECKEDE ON PT, PT SLEEPING, CALL LIGHT WITHIN REACH, WILL CONTINUE TO MONITOR
[2019-03-17 04:00] VITALS: BP 159/73
[2019-03-17] MEDS: ALUMINUM HYDROXIDE 64 MG/ML BOTTLE PO SCH ×2 (04:39→12:22)
--- NOTE | 2019-03-17 04:39 | NUR ---
DUE MEDICATION ADMINISTERED, PT TOLERATED WELL, V/S TAKEN WITHIN PT BASELINE, PT SITTING ON BEDSIDE COMMODE, NO DISTRESS NOTED, CLAL LIGHT WITHIN REACH, WILL CONTINUE TO MONITOR.
[2019-03-17] MEDS: BLOOD GLUCOSE MONITORING 1 DEV DEV FS SCH ×2 (05:40→12:15)
--- NOTE | 2019-03-17 07:13 | NUR ---
ENDORSED PT TO DAY SHIFT NURSE KENNETH RN, PT STABLE, NO DISTRESS NOTED, CALL LIGHT WITHIN REACH.
--- NOTE | 2019-03-17 07:15 | NUR ---
RECEIVED BEDSIDE REPORT FROM HOME HOUSEKEEPER NURSE FOR CONTINUITY OF CARE. PATIENT IS AWAKE AND RESTING ON BED AT THIS TIME. PATIENT IS AAOX4. RESPIRATION EVEN AND UNLABORED ON RA. DENIED PAIN AND SOB AT THIS TIME. NO SIGNS OF DISTRESS NOTED. IV ON L HAND 23G, CLEAN AND INTACT, SL PER MD ORDER. SKIN INTACT AND CLEAN. PATIENT IS ABLE TO AMBULATE WITH ASSIST AND CONTINENT. BEDSIDE COMMODE IN PLACE. DISCUSSED PLAN OF CARE WITH PATIENT AND PATIENT VERBALIZED UNDERSTANDING. SAFETY MEASURES IN PLACE. TELE MONITOR IN PLACE. BED IN LOW POSITION AND CALL LIGHT WITHIN REACH. INSTRUCTED PATIENT TO USE THE CALL LIGHT FOR ANY ASSISTANCE AND PATIENT WAS AWARE.
[2019-03-17 07:17] LABS: BASOPHILS # (AUTO) 0.1 K/uL (0.00-0.22); BASOPHILS % (AUTO) 0.8 % (0.0-2.0); EOSINOPHILS # (AUTO) 0.2 K/uL (0-0.4); EOSINOPHILS % (AUTO) 3.4 % (0.0-4.0); HEMATOCRIT 23.1 % (36-48); HEMOGLOBIN 7.8 g/dL (12.0-16.0); LYMPHOCYTES # (AUTO) 0.9 K/uL (2.5-16.5); MEAN CORPUSCULAR HEMOGLOBIN 29 pg (27-31); MEAN CORPUSCULAR HGB CONC 34 g/dL (33-37); MEAN CORPUSCULAR VOLUME 86.7 fL (80-94); MONOCYTES # (AUTO) 0.7 K/uL (0.8-1.0); MONOCYTES % (AUTO) 9.8 % (1.7-9.3); NEUTROPHILS # (AUTO) 5.3 K/uL (1.8-7.7); PLATELET COUNT (AUTO) 211 K/uL (140-450); RED BLOOD CELL COUNT(AUTO) 2.66 MIL/uL (4.20-5.40); RED CELL DISTRIBUTION WIDTH 22.1 % (11.6-13.7); WHITE BLOOD COUNT (AUTO) 7.2 K/uL (4.8-10.8)
[2019-03-17 07:21] LABS: CARBON DIOXIDE 21.3 mmol/L (21-32); POTASSIUM 4.3 mmol/L (3.5-5.1)
[2019-03-17 07:25] LABS: CREATININE 5.1 mg/dL (0.6-1.3)
--- NOTE | 2019-03-17 07:25 | NUR ---
RECEIVED CRITICAL LAB VALUE FOR BUN 92 AND CR 5.1. NOTIFIED DR GUAMAN AND DR GUAMAN WAS AWARE OF CRITICAL LAB VALUE. NO ORDER RECEIVED.
[2019-03-17 08:00] VITALS: BP 177/79
--- NOTE | 2019-03-17 08:01 | NUR ---
PATIENT'S BP WAS 177/79, PULSE 67. NOTIFIED DR GUAMAN DURING AM BED HUDDLE. DR GUAMAN WAS AWARE OF HIGH BP. WILL ADMINISTER AM BP MEDS.
[2019-03-17] MEDS: hydrALAZINE 25 MG TAB PO SCH (08:16)
[2019-03-17] MEDS: NIFEdipine 90 MG TABER PO SCH (08:16)
[2019-03-17] MEDS: LABETALOL 200 MG TAB PO SCH (08:17)
[2019-03-17] MEDS: FAMOTIDINE 20 MG TAB PO SCH (08:17)
[2019-03-17] MEDS: LACTOBACILLUS RHAMNOSUS GG 1 EACH CAP PO SCH (08:17)
[2019-03-17] MEDS: ASCORBIC ACID 500 MG TAB PO SCH (08:17)
[2019-03-17] MEDS: LACTULOSE 20 GM/30 ML UDC PO SCH (08:18)
[2019-03-17] MEDS: CALCIUM CARB/VIT-D 500 MG/200 IU 1 TAB PO SCH (08:18)
[2019-03-17] MEDS: CALCIUM ACETATE 667 MG TAB PO SCH ×2 (08:18→12:19)
[2019-03-17] MEDS: DOCUSATE SODIUM 100 MG GELCAP PO SCH (08:18)
--- NOTE | 2019-03-17 08:19 | NUR ---
ADMINISTERED MEDS PER MD ORDER, PATIENT TOLERATED WELL. PATIENT REFUSED COLACE AND STATED THAT "I WENT TO THE BATHROOM A LOT LAST NIGHT AND I AM NOT CONSTIPATED." HOLD COLACE. MEDICATION EDUCATION PROVIDED. PATIENT IS TALKING ON HER PHONE. NO SIGNS OF DISTRESS NOTED. SAFETY MEASURES IN PLACE. TELE MONITOR ATTACHED. BED IN LOW POSITION AND CALL LIGHT WITHIN REACH. INSTRUCTED PATIENT TO USE THE CALL LIGHT FOR ANY ASSISTANCE AND PATIENT WAS AWARE.
--- NOTE | 2019-03-17 08:53 | NUR ---
DR MELTON IS ASSESSING AND TALKING TO PATIENT AT BEDSIDE. NO SIGNS OF DISTRESS NOTED. SAFETY MEASURES IN PLACE. BED IN LOW POSITION AND CALL LIGHT WITHIN REACH. INSTRUCTED PATIENT TO USE THE CALL LIGHT FOR ANY ASSISTANCE AND PATIENT WAS AWARE. Addendum: 03/17/19 at 0855 by Leslee Melton RN DR LUCIA
--- NOTE | 2019-03-17 09:40 | NUR ---
PATIENT IS AWAKE AND TALKING ON HER PHONE AT THIS TIME. NO SIGNS OF DISTRESS NOTED. SAFETY MEASURES IN PLACE. TELE MONITOR ATTACHED. BED IN LOW POSITION AND CALL LIGHT WITHIN REACH. INSTRUCTED PATIENT TO USE THE CALL LIGHT FOR ANY ASSISTANCE AND PATIENT WAS AWARE.
[2019-03-17] MEDS ORDERED: TRA200 PO (09:43)
[2019-03-17] MEDS ORDERED: VITC500 PO (09:43)
[2019-03-17] MEDS ORDERED: FER325 PO (09:43)
[2019-03-17] MEDS ORDERED: PHO667 PO (09:43)
--- NOTE | 2019-03-17 10:00 | NUR ---
INFORMED PATIENT THAT SHE WILL BE DC TODAY. PER PATIENT, SHE WANTS TO EAT LUNCH AND THEN HER FAMILY WILL BE ABLE TO PICK HER UP AFTER NOON. WILL PREPARE DC DOCUMENTS.
--- NOTE | 2019-03-17 10:35 | NUR ---
DR GUAMAN IS TALKING TO PATIENT AT BEDSIDE. NO SIGNS OF DISTRESS NOTED. SAFETY MEASURES IN PLACE. TELE MONITOR ATTACHED. BED IN LOW POSITION AND CALL LIGHT WITHIN REACH. INSTRUCTED PATIENT TO USE THE CALL LIGHT FOR ANY ASSISTANCE AND PATIENT WAS AWARE.
[2019-03-17] MEDS ORDERED: FAMO20TA13 PO (11:11)
[2019-03-17] MEDS ORDERED: [UNRECOGNIZED DRUG - CODE] PO (11:11)
--- NOTE | 2019-03-17 11:38 | NUR ---
PATIENT IS TALKING TO DIETITIAN ARMED SECURITY PROFESSIONAL AT BEDSIDE. NO SIGNS OF DISTRESS NOTED. SAFETY MEASURES IN PLACE. TELE MONITOR IN PLACE. BED IN LOW POSITION AND CALL LIGHT WITHIN REACH. INSTRUCTED PATIENT TO USE THE CALL LIGHT FOR ANY ASSISTANCE AND PATIENT WAS AWARE.
[2019-03-17 12:00] VITALS: BP 171/77
--- NOTE | 2019-03-17 12:15 | NUR ---
CHECKED PATIENT'S BP AND RECEIVED 171/77 AND PULSE [address] NOT[address] SANDOVAL ON REGARDS PATIENT'S BP, PER DR SANDOVAL, SHE WILL CHANGE HYDRALAZINE FROM BID TO TID.
[2019-03-17] MEDS: SODIUM FERRIC GLUCONATE 125 MG in NACL 0.9% 100 ML IV SCH (12:20)
--- NOTE | 2019-03-17 12:25 | NUR ---
PATIENT IS SITTING UP ON BED AND EATING LUNCH AT THIS TIME. PER PATIENT, SHE HAS CONTACT HER FAMILY AND THEY ARE ON THEIR WAY TO PICK HER UP. NO SIGNS OF DISTRESS NOTED. SAFETY MEASURES IN PLACE. BED IN LOW POSITION AND CALL LIGHT WITHIN REACH. INSTRUCTED PATIENT TO USE THE CALL LIGHT FOR ANY ASSISTANCE AND PATIENT WAS AWARE.
[2019-03-17] MEDS ORDERED: HYDR100T49 PO (12:38)
[2019-03-17] MEDS ORDERED: HYDR100T79 PO (12:40)
--- NOTE | 2019-03-17 12:45 | NUR ---
ADMINISTERED BP MEDS HYDRALAZINE PER MD ORDER, PATIENT TOLERATED WELL. PATIENT IS SITTING UP ON BED AND EATING HER LUNCH. NO SIGNS OF DISTRESS NOTED. SAFETY MEASURES IN PLACE. BED IN LOW POSITION AND CALL LIGHT WITHIN REACH. INSTRUCTED PATIENT TO USE THE CALL LIGHT FOR ANY ASSISTANCE AND PATIENT WAS AWARE.
[2019-03-17] MEDS ORDERED: hydrALAZINE 25 MG TAB PO SCH (13:00)
--- NOTE | 2019-03-17 13:15 | NUR ---
PATIENT IS CHANGING INTO HER OWN CLOTHES. NO SIGNS OF DISTRESS NOTED. AWAITING FOR DAUGHTER ODELL TO ARRIVE FOR WELLNESS COORDINATOR. SAFETY MEASURES IN PLACE. TELE MONITOR ATTACHED. INSTRUCTED PATIENT TO USE THE CALL LIGHT FOR ANY ASSISTANCE AND PATIENT WAS AWARE.
--- NOTE | 2019-03-17 13:25 | NUR ---
PATIENT DAUGHTER ODELL ARRIVED AT BEDSIDE. ODELL WAS HELPING PATIENT GATHER ALL HER BELONGINGS.
--- NOTE | 2019-03-17 13:45 | NUR ---
DISCHARGE INSTRUCTION PROVIDED TO PATIENT AND DAUGHTER ODELL AT BEDSIDE. EDUCATED PATIENT ON MD FOLLOW UP, MEDICATION REGIMEN AND SIDE EFFECTS, DISEASE MANAGEMENT, AND DIET REGIMEN. PATIENT AND ODELL VERBALIZED UNDERSTANDING. ANSWERED ALL PATIENT'S AND ODELL'S QUESTIONS. D/C IV AND CANNULA INTACT, NO BLEEDING AT IV SITE. PATIENT TOLERATED WELL. REMOVED ALL ARM BANDS AND TELE MONITOR. DAUGHTER ODELL CHECKED ALL CABINETS AND TOOK ALL PATIENT'S BELONGINGS. ESCORTED PATIENT IN WHEELCHAIR TO LOBBY. PATIENT IS GOING TO DISCHARGE AT THIS TIME ACCOMPANIED WITH DAUGHTER ODELL. PATIENT IS IN STABLE CONDITION.
== END 2019-03-17 13:45 | disposition home or self-care (01) | DRG 137 ==
LOC: MED 19:43 → MTU 21:18 → MERGE 21:18
PROVIDERS: ADMIT General Practice; ATTEND General Practice
PROC: 30233N1 Transfusion of Nonautologous Red Blood Cells into Peripheral Vein, Percutaneous Approach (ICD-10-PCS; principal; 2019-03-15)
DX: J69.0 Pneumonitis due to inhalation of food and vomit (principal); J96.01 Acute respiratory failure with hypoxia; N17.0 Acute kidney failure with tubular necrosis; I50.43 Acute on chronic combined systolic (congestive) and diastolic (congestive) heart failure; R18.8 Other ascites; E11.21 Type 2 diabetes mellitus with diabetic nephropathy; E87.70 Fluid overload, unspecified; N18.4 Chronic kidney disease, stage 4 (severe); I13.0 Hypertensive heart and chronic kidney disease with heart failure and stage 1 through stage 4 chronic kidney disease, or unspecified chronic kidney disease; E11.22 Type 2 diabetes mellitus with diabetic chronic kidney disease; E66.9 Obesity, unspecified; Z68.30 Body mass index [BMI] 30.0-30.9, adult; Z79.899 Other long term (current) drug therapy; Z82.49 Family history of ischemic heart disease and other diseases of the circulatory system; E02 Subclinical iodine-deficiency hypothyroidism; E78.00 Pure hypercholesterolemia, unspecified; D63.1 Anemia in chronic kidney disease
CPT/HCPCS: 36415; 71045; 76604; 76700; 80048; 80053; 80305; 81001; 82272; 82570; 82607; 82728; 82746; 82948; 83036; 83540; 83605; 83690; 83735; 83880; 84100; 84134; 84300; 84443; 84484; 85025; 85045; 85379; 85610; 85730; 86886; 86900; 86901; 86920; 87040; 87070; 87081; 87086; 87205; 93005; 93970; 94640; 96374; 96375; 97110; 97116; 97161-GP; 97530; 99285; J0885; J1170; J1815; J1940; J2270; J2405; J2543; J2916; J3370; J3490; J7030; J7042; J7060; J7620; P9016; Q0092

== ENCOUNTER 2021-12-29 09:15 | Emergency (ER) | payer MEDICAID ==
[~2021-12-29] VITALS: Ht 157.5 cm; Wt 79.4 kg
[~2021-12-29 09:15] MED LIST changes: +CALC667C12 PO; +FAMO20TA13 PO; +FER325 PO; -HUM SUBQ; +HYDR100T49 PO; -METO25TE2 PO; +NIFE90TE63 PO; +PROC5TAB PO; +TRA200 PO; +VITC500 PO; +[UNRECOGNIZED DRUG - CODE] PO
[2021-12-29 09:22] VITALS: BP 139/81
[2021-12-29] MEDS: LIDOCAINE MPF 1% 10 MG/ML VIAL INJ ONE (10:00)
== END 2021-12-29 11:00 | disposition home or self-care (01) ==
LOC: MED 09:15
DX: R22.42 Localized swelling, mass and lump, left lower limb (principal); E11.9 Type 2 diabetes mellitus without complications; I10 Essential (primary) hypertension; Z98.890 Other specified postprocedural states; Z79.899 Other long term (current) drug therapy
CPT/HCPCS: 10060; 99284; J2001

== ENCOUNTER 2022-01-02 09:14 | Emergency (ER) | payer MEDICAID ==
[~2022-01-02] VITALS: Ht 157.5 cm; Wt 80.0 kg
[2022-01-02 09:19] VITALS: BP 121/67
--- NOTE | 2022-01-02 09:24 | NUR ---
Kev martinez in [facility] - 01/02/22 at 0926 by [email or web address] PT AMB TO BED 2.
--- NOTE | 2022-01-02 09:26 | NUR ---
PT AMB TO BED 1.
--- NOTE | 2022-01-02 10:33 | NUR ---
Patient discharged with v/s stable. Written and verbal after care instructions given and explained. Patient alert, oriented and verbalized understanding of instructions. Ambulatory with to car. All questions addressed prior to discharge. ID band removed. Patient advised to follow up with PMD. NO Rx given. Opportunity to ask questions provided and answered. PATIENT TO FOLLOW UP WITH BIOMETRIC SCREENER FOR CYST REMOVAL
[2022-01-02 10:34] VITALS: BP 121/67
== END 2022-01-02 10:34 | disposition home or self-care (01) ==
LOC: MED 09:14
DX: R22.42 Localized swelling, mass and lump, left lower limb (principal); E11.9 Type 2 diabetes mellitus without complications; I10 Essential (primary) hypertension; Z98.890 Other specified postprocedural states; Z79.899 Other long term (current) drug therapy
CPT/HCPCS: 99281

== ENCOUNTER 2022-05-07 16:26 | Emergency (ER) | payer MEDICAID, OTHER ==
[~2022-05-07] VITALS: Ht 160 cm; Wt 78.9 kg
[2022-05-07 16:48] VITALS: BP 148/80
[2022-05-07 17:58] LABS: BASOPHILS # (AUTO) 0.1 K/uL (0.00-0.22); BASOPHILS % (AUTO) 0.7 % (0.0-2.0); EOSINOPHILS # (AUTO) 0.1 K/uL (0-0.4); EOSINOPHILS % (AUTO) 0.6 % (0.0-4.0); HEMATOCRIT 33.8 % (36-48); HEMOGLOBIN 11.5 g/dL (12.0-16.0); LYMPHOCYTES # (AUTO) 1.1 K/uL (2.5-16.5); LYMPHOCYTES % (AUTO) 10.7 % (20.5-51.1); MEAN CORPUSCULAR HEMOGLOBIN 33 pg (27-31); MEAN CORPUSCULAR HGB CONC 34 g/dL (33-37); MEAN CORPUSCULAR VOLUME 98.2 fL (80-94); MONOCYTES # (AUTO) 0.4 K/uL (0.8-1.0); MONOCYTES % (AUTO) 4.3 % (1.7-9.3); NEUTROPHILS # (AUTO) 8.3 K/uL (1.8-7.7); NEUTROPHILS % (AUTO) 83.7 % (42.2-75.2); PLATELET COUNT (AUTO) 263 K/uL (140-450); RED BLOOD CELL COUNT(AUTO) 3.44 MIL/uL (4.20-5.40); RED CELL DISTRIBUTION WIDTH 12.9 % (11.6-13.7); WHITE BLOOD COUNT (AUTO) 9.9 K/uL (4.8-10.8)
--- NOTE | 2022-05-07 18:15 | NUR ---
PT WC ASSISTED TO BED 9
[2022-05-07 18:22] LABS: ALBUMIN 3.1 g/dL (3.4-5.0); ANION GAP 15.3 (8-16); CARBON DIOXIDE 28.9 mmol/L (21-32); POTASSIUM 4.2 mmol/L (3.5-5.1); TOTAL BILIRUBIN 0.4 mg/dL (0.0-1.0)
[2022-05-07 18:31] LABS: CREATININE 5.5 mg/dL (0.6-1.3)
--- NOTE | 2022-05-07 18:33 | NUR ---
62 Y/O FEMALE BIB SELF C/O EPIGASTRIC PAIN X2DAYS. PER PT SHE ATE SHRIMP LAST NIGHT AND HAS STARTED VOMITING SINCE, TOOK TYLENOL FOR PAIN AND PEPTO BISMOL FOR VOMITING WITH MINIMAL EFFECT NKA PMH: CKD, PERITONEAL DIALYSIS, HTN, DM
--- NOTE | 2022-05-07 18:36 | NUR ---
PT OFFERED ICE CHIPS
--- NOTE | 2022-05-07 18:51 | NUR ---
DR DOMINIQUE AT BEDSIDE FOR EVAL
--- NOTE | 2022-05-07 19:27 | NUR ---
Pt report given to WILLIAM KIRBY. Transfer of care at this time.
--- NOTE | 2022-05-07 19:27 | NUR ---
RECIEVED REPORT FROM MIRTA SPRAGUE. TRANSFER OF CARE AT THIS TIME.
[2022-05-07] MEDS ORDERED: ONDANSETRON 4 MG/2 ML VIAL IVP ONE (19:50)
[2022-05-07] MEDS ORDERED: MORPHINE SULFATE 2 MG/ML SYR IVP ONE (19:50)
[2022-05-07] MEDS ORDERED: NACL 0.9% 1,000 ML IV SCH (19:50)
[2022-05-07] MEDS ORDERED: PANTOPRAZOLE 40 MG INJ VIAL IVP ONE (19:50)
--- NOTE | 2022-05-07 20:08 | NUR ---
Ultrasound at bedside.
--- NOTE | 2022-05-07 20:19 | NUR ---
Kev martinez in [facility] - 05/07/22 at 2019 by [email or web address] ultrasound at bedside
[2022-05-07 20:43] LABS: APPEARANCE,URINE CLEAR (CLEAR); BILIRUBIN,URINE NEGATIVE (NEGATIVE); BLOOD, URINE 1+ (NEGATIVE); COLOR,URINE YELLOW (YELLOW); LEUKOCYTE ESTERASE ,URINE NEGATIVE (NEGATIVE); NITRITE, URINE NEGATIVE (NEGATIVE); UGLUCOSE 1+ (NEGATIVE)
--- NOTE | 2022-05-07 21:10 | NUR ---
PT TAKEN TO CT
[2022-05-07 21:18] LABS: RBC,URINE 0-5 /HPF (0-5); WBC,URINE 0-5 /HPF (0-5)
--- NOTE | 2022-05-07 21:23 | NUR ---
PT RETURNED FROM CT
[2022-05-07] MEDS ORDERED: CEPH500C16 PO (22:58)
[2022-05-07 23:42] VITALS: BP 149/69
--- NOTE | 2022-05-07 23:43 | NUR ---
Patient discharged with v/s stable. Written and verbal after care instructions given and explained. Patient alert, oriented and verbalized understanding of instructions. Wheel Chair Assisted with to car. All questions addressed prior to discharge. ID band removed. Patient advised to follow up with PMD. Rx of KEFLEX given. Patient educated on indication of medication including possible reaction and side effects. Opportunity to ask questions provided and answered. VSS, A/OX4, AMBULATORY, UNLABORED BREATHING, AND CALM DEMEANOR.
== END 2022-05-07 23:43 | disposition home or self-care (01) ==
LOC: MED 16:26
DX: R10.13 Epigastric pain (principal); I10 Essential (primary) hypertension; E11.9 Type 2 diabetes mellitus without complications; N18.6 End stage renal disease; Z99.2 Dependence on renal dialysis; Z79.4 Long term (current) use of insulin; Z79.899 Other long term (current) drug therapy; Z98.890 Other specified postprocedural states
CPT/HCPCS: 36415; 74176; 76705; 80053; 81001; 83690; 85025; 96361; 96374; 96375; 99284; C9113; J2270; J2405; Q0092

== ENCOUNTER 2023-06-01 18:09 | Emergency (ER) | payer OTHER ==
[~2023-06-01] VITALS: Ht 160 cm; Wt 83.5 kg
[~2023-06-01 18:09] MED LIST changes: +CEPH500C16 PO; -PROC5TAB PO; +[UNRECOGNIZED DRUG - CODE] PO
[2023-06-01 18:10] VITALS: BP 147/74; PULSE 67; RESP 18; TEMP 99.9; O2SAT 99
[2023-06-01] MEDS ORDERED: ACET-8905 PO (20:10)
[2023-06-01] MEDS ORDERED: CEPH-588 PO (20:10)
[2023-06-01 20:20] VITALS: BP 132/72; PULSE 68; RESP 16; TEMP 98.7; O2SAT 99
== END 2023-06-01 20:20 | disposition home or self-care (01) ==
LOC: MED 18:09
DX: L02.612 Cutaneous abscess of left foot (principal); M79.672 Pain in left foot; E11.22 Type 2 diabetes mellitus with diabetic chronic kidney disease; I12.0 Hypertensive chronic kidney disease with stage 5 chronic kidney disease or end stage renal disease; N18.6 End stage renal disease; Z99.2 Dependence on renal dialysis; Z79.899 Other long term (current) drug therapy
CPT/HCPCS: 10060; 82948; 93971; 99284; Q0092

== ENCOUNTER 2023-09-15 09:20 | Emergency (ER) | payer OTHER ==
[~2023-09-15] VITALS: Ht 160 cm; Wt 82.6 kg
[~2023-09-15 09:20] MED LIST changes: +ACET-8905 PO; +CEPH-588 PO
[2023-09-15 09:29] VITALS: BP 157/75; PULSE 54; RESP 20; TEMP 97.9; O2SAT 98
[2023-09-15 11:00] VITALS: O2SAT 98
== END 2023-09-15 11:47 | disposition home or self-care (01) ==
LOC: MED 09:20
DX: T85.631A Leakage of intraperitoneal dialysis catheter, initial encounter (principal); E11.22 Type 2 diabetes mellitus with diabetic chronic kidney disease; I12.0 Hypertensive chronic kidney disease with stage 5 chronic kidney disease or end stage renal disease; N18.6 End stage renal disease; Z99.2 Dependence on renal dialysis; Z79.899 Other long term (current) drug therapy; Z79.2 Long term (current) use of antibiotics
CPT/HCPCS: 82948; 99282